=== PATIENT | female | born 1985 | race Caucasian/White ===

== ENCOUNTER 2016-04-14 14:37 | Emergency (ER) | payer MEDICAID ==
[2016-04-14] MEDS ORDERED: Ondansetron INJ* 2 MG/ML VIAL IV ONE ×3 (15:39→17:36)
[2016-04-14] MEDS: NS 0.9% 1000 ML* 2,000 ML IV ONE (16:12)
[2016-04-14 16:14] LABS: Hematocrit 37 % (35-47); Hemoglobin 12.4 g/dl (12.0-16.0); Mean Corpuscular HGB Conc 34 g/dl (31-36); Mean Corpuscular Hemoglobin 32 pg (27-31); Mean Corpuscular Volume 94 fL (80-97); Mean Platelet Volume 8 um3 (7.4-10.4); Red Cell Distribution Width 13 % (10.5-15); White Blood Count 13.1 10^3/ul (3.5-10.8)
[2016-04-14 16:28] LABS: Albumin 4.4 g/dL (3.2-5.2); BUN/Creatinine Ratio 13.4 (8-20); Calcium 9.8 mg/dL (8.6-10.3); EGFR Non-African American 102.7 (>60); Globulin 2.6 g/dL (2-4); Total Bilirubin 0.5 mg/dL (0.2-1.0)
[2016-04-14 16:34] LABS: Potassium 2.7 mmol/L (3.5-5.0)
[2016-04-14] MEDS ORDERED: KCL 20 MEQ/100 ML IVPREMIX* 20 MEQ/100 ML BAG IV ONE ×2 (16:41)
[2016-04-14] MEDS ORDERED: Ondansetron INJ* 2 MG/ML VIAL ONE ×2 (17:36)
[2016-04-14 18:46] LABS: Urine Bacteria Absent (Absent); Urine Bilirubin Negative (Negative); Urine Glucose Negative (Negative); Urine Nitrite Negative (Negative)
[2016-04-14] MEDS ORDERED: PROCHLORPERAZINE INJ 5 MG/ML 2 ML VIAL IV ONE (19:55)
[2016-04-14] MEDS ORDERED: PROCHLORPERAZINE INJ 5 MG/ML 2 ML VIAL IV PRN (19:55)
[2016-04-14 21:06] VITALS: BP 122/78
--- NOTE | 2016-04-14 21:10 | ED ---
Roge Woods Alok, scribed for Trevon Enciso MD on 04/14/16 at 1542 . - HPI Summary HPI Summary: 30 y/o female, 7 weeks presents to the ED with c/o vomiting and nausea for the past week. Pt reports that this is her first (G/V/A = 1/0/0) and for the past 3 days her symptoms have been getting worse, unable to keep any food down. Pt was prescribed Promthazine to no alleviation. Pt denies any vaginal bleeding nor abdominal pain except for directly after vomiting. Pt denies any pertinent PMHx at this time. - History of Current Complaint Chief Complaint: EDAbdPain Stated Complaint: 7WKS PREG / VOMITING-ABD PAIN Time Seen by Provider: 04/14/16 15:30 Hx Obtained From: Patient Chief Complaint: Other: - vomiting and nausea Onset/Duration: Started Days Ago, Atraumatic, Still Present Timing: Constant Severity: Moderate Current Severity: Moderate Pain Intensity: 8 Aggravating Factors: Other: - Vomiting Alleviating Factors: Nothing Associated Signs and Symptoms: Positive: Nausea, Vomiting, Other: - Abd pain only after vomiting. Negative: Vaginal Bleeding or Discharge - Assessment Hx Now: Yes Hx : 1 Hx Para: 0 Vaginal Bleeding Amount: None - Allergies/Home Medications Allergies/Adverse Reactions: Allergies Allergy/AdvReac Type Severity Reaction Status Date / Time No Known Allergies Allergy Verified 04/14/16 16:17 Home Medications: Home Medications Vitamin TAB* 1 tab PO DAILY 04/14/16 [History Confirmed 04/14/16] Promethazine TAB* [Phenergan TAB*] 25 mg PO Q6H PRN 04/14/16 [History Confirmed 04/14/16] PMH/Surg Hx/FS Hx/Imm Hx Infectious Disease History: No Infectious Disease History: Denies: Traveled Outside the [place] in Last 30 Days - Family History Known Family History: Negative: Cardiac Disease, Diabetes Review of Systems Negative: Fever Positive: Abdominal Pain - Only after vomiting, Vomiting, Nausea Negative: other - Vaginal bleeing All Other Systems Reviewed And Are Negative: Yes Physical Exam - Physical Exam Triage Information Reviewed: Yes Vital Signs Reviewed: Yes Appearance: Positive: Well-Appearing, No Pain Distress Skin: Positive: Warm, Skin Color Reflects Adequate Perfusion, Dry Head/Face: Positive: Normal Head/Face Inspection Eyes: Positive: Normal ENT: Positive: Normal ENT inspection Neck: Positive: Supple, Nontender Respiratory/Lung Sounds: Positive: Clear to Auscultation, Breath Sounds Present Cardiovascular: Positive: RRR Abdomen Description: Positive: Nontender, Soft Bowel Sounds: Positive: Present Musculoskeletal: Positive: Normal Neurological: Positive: Normal Psychiatric: Positive: Normal, Affect/Mood Appropriate Diagnostics - Vital Signs Vital Signs Temp Pulse Resp BP Pulse Ox 04/14/16 15:19 98.7 F 97 16 118/69 99 04/14/16 14:39 97.8 F 66 16 119/72 100 - Laboratory Lab Results: Lab Results 04/14/16 04/14/16 04/14/16 Range/Units 16:05 16:05 16:05 WBC 13.1 H (3.5-10.8) 10^3/ul RBC 3.90 L (4.0-5.4) 10^6/ul Hgb 12.4 (12.0-16.0) g/dl Hct 37 (35-47) % MCV 94 (80-97) fL MCH 32 H (27-31) pg MCHC 34 (31-36) g/dl RDW 13 (10.5-15) % Plt Count 284 (150-450) 10^3/ul MPV 8 (7.4-10.4) um3 Neut % (Auto) 73.6 (38-83) % Lymph % (Auto) 18.5 L (25-47) % [place] % (Auto) 7.2 (1-9) % Eos % (Auto) 0.2 (0-6) % Baso % (Auto) 0.5 (0-2) % Absolute Neuts (auto) 9.6 H (1.5-7.7) 10^3/ul Absolute Lymphs (auto) 2.4 (1.0-4.8) 10^3/ul Absolute Monos (auto) 1.0 H (0-0.8) 10^3/ul Absolute Eos (auto) 0 (0-0.6) 10^3/ul Absolute Basos (auto) 0.1 (0-0.2) 10^3/ul Absolute Nucleated RBC 0.01 10^3/ul Nucleated RBC % 0 INR (Anticoag Therapy) 1.06 (0.89-1.11) Sodium 133 (133-145) mmol/L Potassium 2.7 L* (3.5-5.0) mmol/L Chloride 94 L (101-111) mmol/L Carbon Dioxide 31 (22-32) mmol/L Anion Gap 8 (2-11) mmol/L BUN 9 (6-24) mg/dL Creatinine 0.67 (0.51-0.95) mg/dL Est GFR ( Amer) 132.0 (>60) Est GFR (Non-Af Amer) 102.7 (>60) BUN/Creatinine Ratio 13.4 (8-20) Glucose 88 (70-100) mg/dL Lactic Acid (0.5-2.0) mmol/L Calcium 9.8 (8.6-10.3) mg/dL Total Bilirubin 0.50 (0.2-1.0) mg/dL AST 10 L (13-39) U/L ALT 12 (7-52) U/L Alkaline Phosphatase 52 (34-104) U/L Total Protein 7.0 (6.4-8.9) g/dL Albumin 4.4 (3.2-5.2) g/dL Globulin 2.6 (2-4) g/dL Albumin/Globulin Ratio 1.7 (1-3) Beta HCG, Quant 303884.00 mIU/mL Urine Color Urine Appearance Urine pH (5-9) Ur Specific [place] (1.010-1.030) Urine Protein (Negative) Urine Ketones (Negative) Urine Blood (Negative) Urine Nitrate (Negative) Urine Bilirubin (Negative) Urine Urobilinogen (Negative) Ur Leukocyte Esterase (Negative) Urine WBC (Auto) (Absent) Urine RBC (Auto) (Absent) Ur Squamous Epith Cells (Absent) Amorphous Crystals (Absent) Urine Bacteria (Absent) Urine Glucose (Negative) 04/14/16 04/14/16 Range/Units 16:05 18:20 WBC (3.5-10.8) 10^3/ul RBC (4.0-5.4) 10^6/ul Hgb (12.0-16.0) g/dl Hct (35-47) % MCV (80-97) fL MCH (27-31) pg MCHC (31-36) g/dl RDW (10.5-15) % Plt Count (150-450) 10^3/ul MPV (7.4-10.4) um3 Neut % (Auto) (38-83) % Lymph % (Auto) (25-47) % [place] % (Auto) (1-9) % Eos % (Auto) (0-6) % Baso % (Auto) (0-2) % Absolute Neuts (auto) (1.5-7.7) 10^3/ul Absolute Lymphs (auto) (1.0-4.8) 10^3/ul Absolute Monos (auto) (0-0.8) 10^3/ul Absolute Eos (auto) (0-0.6) 10^3/ul Absolute Basos (auto) (0-0.2) 10^3/ul Absolute Nucleated RBC 10^3/ul Nucleated RBC % INR (Anticoag Therapy) (0.89-1.11) Sodium (133-145) mmol/L Potassium (3.5-5.0) mmol/L Chloride (101-111) mmol/L Carbon Dioxide (22-32) mmol/L Anion Gap (2-11) mmol/L BUN (6-24) mg/dL Creatinine (0.51-0.95) mg/dL Est GFR ( Amer) (>60) Est GFR (Non-Af Amer) (>60) BUN/Creatinine Ratio (8-20) Glucose (70-100) mg/dL Lactic Acid 1.1 (0.5-2.0) mmol/L Calcium (8.6-10.3) mg/dL Total Bilirubin (0.2-1.0) mg/dL AST (13-39) U/L ALT (7-52) U/L Alkaline Phosphatase (34-104) U/L Total Protein (6.4-8.9) g/dL Albumin (3.2-5.2) g/dL Globulin (2-4) g/dL Albumin/Globulin Ratio (1-3) Beta HCG, Quant mIU/mL Urine Color Yellow Urine Appearance Cloudy Urine pH 7.0 (5-9) Ur Specific [place] 1.025 (1.010-1.030) Urine Protein 1+(30 mg/dl) H (Negative) Urine Ketones 2+ H (Negative) Urine Blood Negative (Negative) Urine Nitrate Negative (Negative) Urine Bilirubin Negative (Negative) Urine Urobilinogen Negative (Negative) Ur Leukocyte Esterase Negative (Negative) Urine WBC (Auto) 1+(6-10/hpf) H (Absent) Urine RBC (Auto) 2+(6-10/hpf) H (Absent) Ur Squamous Epith Cells Present H (Absent) Amorphous Crystals Present H (Absent) Urine Bacteria Absent (Absent) Urine Glucose Negative (Negative) Result Diagrams: 04/14/16 16:05 04/14/16 16:05 Lab Statement: Any lab studies that have been ordered have been reviewed, and results considered in the medical decision making process. Re-Evaluation - Re-Evaluation First Eval Re-Evaluation Time: 20:55 Course/Dx - Course Course Of Treatment: Winifred Tamayo presented with N/V for four days, essentially unable to keep anything down. She was treated symptomatically and rehydrated. She was found to be hypokalemic and had some replacement. - Diagnoses Provider Diagnoses: Vomiting affecting , Hypokalemia - Provider Notifications Discussed Care Of Patient With: Dr. Astudillo Discharge - Discharge Plan Condition: Stable Disposition: HOME Patient Education Materials: Nausea and Vomiting in (ED) Forms: *Work Release Referrals: Joy Garcia [Primary Care Provider] - Flora Astudillo MD [Medical Doctor] - Additional Instructions: Please follow up with Dr. Astudillo (OBGYN) Please see most up to date information attached The documentation as recorded by the Roge garcia Alok accurately reflects the service I personally performed and the decisions made by , Trevon Enciso MD.
== END 2016-04-14 21:58 | disposition home or self-care (01) ==
LOC: ED 14:37
DX: O21.0 Mild hyperemesis gravidarum (principal); Z3A.01 Less than 8 weeks gestation of pregnancy; R10.9 Unspecified abdominal pain; E87.6 Hypokalemia
CPT/HCPCS: 36415; 80053; 81003; 81015; 83605; 84702; 85025; 85610; 96374; 96375; 99283; J0780; J2405; J3480

== ENCOUNTER 2016-05-23 11:19 | Emergency (ER) | payer MEDICAID ==
[2016-05-23] MEDS ORDERED: NS 0.9% 1000 ML* 2,000 ML IV ONE (11:57)
[2016-05-23 12:26] LABS: Hematocrit 36 % (35-47); Hemoglobin 12.1 g/dl (12.0-16.0); Mean Corpuscular HGB Conc 33 g/dl (31-36); Mean Corpuscular Hemoglobin 31 pg (27-31); Mean Corpuscular Volume 93 fL (80-97); Mean Platelet Volume 9 um3 (7.4-10.4); Red Blood Count 3.88 10^6/ul (4.0-5.4); Red Cell Distribution Width 13 % (10.5-15); White Blood Count 13.8 10^3/ul (3.5-10.8)
[2016-05-23] MEDS ORDERED: Metoclopramide IV* 5 MG/ML 2 ML VIAL IV SLOW PU ONE (12:34)
--- NOTE | 2016-05-23 12:36 | ED ---
GI/ HPI - HPI Summary HPI Summary: 30F at 15 weeks due date Nov 18, 2016 presents with nausea or vomiting since Sunday. She states her has been complicated by feeling sick a lot. She states she has mild epigastric pain. She denies any diarrhea or constipation. She has been prescribed zofran 8mg every 8 hours as needed for nausea. States that feels that has been vomiting it up the past couple days so has not gotten a full dose she believes. She denies any dysuria or hematuria. - History of Current Complaint Chief Complaint: EDAbdPain Time Seen by Provider: 05/23/16 11:56 Stated Complaint: VOMITING, 15 WEEKS PREG Pain Intensity: 0 - Allergy/Home Medications Allergies/Adverse Reactions: Allergies Allergy/AdvReac Type Severity Reaction Status Date / Time No Known Allergies Allergy Verified 04/14/16 16:17 PMH/Surg Hx/FS Hx/Imm Hx Cardiovascular History: Denies: Hx Hypertension Infectious Disease History: Denies: Traveled Outside the [place] in Last 30 Days - Family History Known Family History: Negative: Cardiac Disease, Diabetes - Social History Alcohol Use: None Substance Use Type: Reports: None Smoking Status (MU): Light Every Day Tobacco Smoker Review of Systems Negative: Fever Negative: Chest Pain Negative: Shortness Of Breath Positive: Abdominal Pain - epigastric, Vomiting, Nausea. Negative: Diarrhea All Other Systems Reviewed And Are Negative: Yes Physical Exam Triage Information Reviewed: Yes Vital Signs On Initial Exam: Initial Vitals Temp Pulse Resp BP Pulse Ox 98.1 F 70 15 101/52 100 05/23/16 11:45 05/23/16 11:45 05/23/16 11:45 05/23/16 11:45 05/23/16 11:45 Vital Signs Reviewed: Yes Appearance: Positive: Well-Appearing Skin: Positive: Warm, Dry Head/Face: Positive: Normal Head/Face Inspection Eyes: Positive: Normal, Conjunctiva Clear Respiratory/Lung Sounds: Positive: Clear to Auscultation, Breath Sounds Present Cardiovascular: Positive: Normal, RRR Abdomen Description: Positive: Nontender, Soft Bowel Sounds: Positive: Present Diagnostics - Vital Signs Vital Signs Temp Pulse Resp BP Pulse Ox 05/23/16 12:24 98.4 F 72 16 118/72 98 05/23/16 11:45 98.1 F 70 15 101/52 100 - Laboratory Lab Results: Lab Results 05/23/16 Range/Units 12:10 WBC 13.8 H (3.5-10.8) 10^3/ul RBC 3.88 L (4.0-5.4) 10^6/ul Hgb 12.1 (12.0-16.0) g/dl Hct 36 (35-47) % MCV 93 (80-97) fL MCH 31 (27-31) pg MCHC 33 (31-36) g/dl RDW 13 (10.5-15) % Plt Count 271 (150-450) 10^3/ul MPV 9 (7.4-10.4) um3 Neut % (Auto) 88.0 H (38-83) % Lymph % (Auto) 8.0 L (25-47) % [place] % (Auto) 3.6 (1-9) % Eos % (Auto) 0 (0-6) % Baso % (Auto) 0.4 (0-2) % Absolute Neuts (auto) 12.2 H (1.5-7.7) 10^3/ul Absolute Lymphs (auto) 1.1 (1.0-4.8) 10^3/ul Absolute Monos (auto) 0.5 (0-0.8) 10^3/ul Absolute Eos (auto) 0 (0-0.6) 10^3/ul Absolute Basos (auto) 0.1 (0-0.2) 10^3/ul Absolute Nucleated RBC 0.01 10^3/ul Nucleated RBC % 0 Result Diagrams: 05/23/16 12:10 05/23/16 12:10 Lab Statement: Any lab studies that have been ordered have been reviewed, and results considered in the medical decision making process. Re-Evaluation - Re-Evaluation First Eval Re-Evaluation Time: 14:00 Change: Improved Comment: no longer nausea able to tolerate PO potassium. wants to go home GIGU Course/Dx - Course Course Of Treatment: 30F 15 weeks presents with nausea or vomiting since sunday. has PO zofran taking that unable to keep down. epigastric pain complain of. on exam abdomen nontender. labs similiar to labs had previously when had same symptoms two months ago. gave reglan and patient able to tolerate PO K for low K. spoke with dr tejeda who agreed to d/c home and gave follow up with her obgyn tomorrow. unable to get urine before patient left. patient understands and agrees with plan - Diagnoses Differential Diagnoses - Female: Gastroenteritis (Viral), Gastroenteritis ( Bacterial), Threatened , Urinary Tract Infection Provider Diagnoses: Nausea and vomiting during - Physician Notifications Discussed Care Of Patient With: dr tejeda Time Discussed With Above Provider: 13:40 - follow up with obgyn tomorrow Discharge - Discharge Plan Condition: Good Disposition: HOME Patient Education Materials: Nausea and Vomiting in (ED) Forms: *Work Release Referrals: Joy Garcia [Primary Care Provider] - Flora Astudillo MD [Medical Doctor] - Additional Instructions: Follow up with OBGYN tomorrow Take zofran as prescribed Drink fluids as tolerated Follow BRAT diet: bananas, rice, applesauce, toast Return to ED if develop any new or worsening symptoms
[2016-05-23 12:43] LABS: Albumin 4.2 g/dL (3.2-5.2); Calcium 9.9 mg/dL (8.6-10.3); EGFR African American 127.6 (>60); EGFR Non-African American 99.2 (>60); Total Bilirubin 0.4 mg/dL (0.2-1.0); Total Protein 7.2 g/dL (6.4-8.9)
[2016-05-23] MEDS ORDERED: Potassium Chlor TAB* 20 MEQ TAB.ER PO ONE (13:10)
[2016-05-23 14:17] VITALS: BP 116/74
== END 2016-05-23 14:16 | disposition home or self-care (01) ==
LOC: ED 11:19
DX: O21.9 Vomiting of pregnancy, unspecified (principal); Z3A.15 15 weeks gestation of pregnancy; F17.290 Nicotine dependence, other tobacco product, uncomplicated
CPT/HCPCS: 36415; 80053; 83690; 84702; 85025; 96361; 96374; 99283; A9270-GY

== ENCOUNTER 2016-11-10 08:14 | Inpatient (IN) | payer OTHER ==
[2016-11-10] MEDS ORDERED: DiMENhydriNATE IV* 50 MG/ML VIAL ONE (09:08)
[2016-11-10 09:13] LABS: Hematocrit 33 % (35-47); Mean Corpuscular HGB Conc 34 g/dl (31-36); Mean Corpuscular Hemoglobin 29 pg (27-31); Mean Corpuscular Volume 86 fL (80-97); Mean Platelet Volume 9 um3 (7.4-10.4); Red Blood Count 3.79 10^6/ul (4.0-5.4); Red Cell Distribution Width 15 % (10.5-15); White Blood Count 10.2 10^3/ul (3.5-10.8)
[2016-11-10] MEDS ORDERED: ceFAZolin 2 GM in NS 0.9% 100 ml IVPB ONE (10:00)
[2016-11-10] MEDS ORDERED: OBEPIDURAL* 250 ML ONE (10:24)
[2016-11-10] MEDS ORDERED: ceFAZolin 2 GM PREMIX (*) 50 ML IVPB ONE (11:00)
[2016-11-10] MEDS ORDERED: Phenylephrine IV* 40 MCG/ML 10 ML SYRINGE IV PUSH PRN ×2 (11:27)
[2016-11-10] MEDS ORDERED: Sodium Citrate/Citric Acid* 15 ML UDC PO PRN (11:27)
[2016-11-10] MEDS ORDERED: Famotidine TAB* 20 MG PO PRN (11:27)
[2016-11-10] MEDS ORDERED: Sodium Citrate/Citric Acid* 15 ML UDC ONE (11:36)
[2016-11-10] MEDS ORDERED: Lidocaine 1% MPF* 2 ML VIAL ONE (11:39)
[2016-11-10] MEDS ORDERED: Lidocaine 1% MPF wEPI 200,000* 30 ML SDV ONE (11:39)
[2016-11-10] MEDS ORDERED: OBEPIDURAL* 250 ML EPIDURAL SCH (12:00)
[2016-11-10] MEDS ORDERED: fentaNYL* 50 MCG/ML 2 ML VIAL (100 MCG VIAL) ONE (12:05)
[2016-11-10] MEDS ORDERED: Sodium Bicarbonate 8.4% SYR* 10 ML SYRINGE ONE (12:06)
[2016-11-10] MEDS ORDERED: Lidocaine 2% EPI 1:200000 MPF* 20 ML VIAL ONE (12:06)
[2016-11-10] MEDS ORDERED: OXYTOCIN* 10 UNITS/ML 1 ML VIAL ONE (12:23)
[2016-11-10] MEDS ORDERED: Ondansetron INJ* 2 MG/ML VIAL ONE (12:40)
[2016-11-10] MEDS ORDERED: fentaNYL* 50 MCG/ML 2 ML VIAL (100 MCG VIAL) IV PRN (12:47)
[2016-11-10] MEDS ORDERED: oxyCODONE TAB* 5 MG TAB PO PRN (12:47)
[2016-11-10] MEDS ORDERED: DiMENhydriNATE IV* 50 MG/ML VIAL IV PUSH PRN (12:47)
[2016-11-10] MEDS ORDERED: Morphine INJ* 2 MG/ML 1 ML CARPUJECT IV PRN (12:47)
[2016-11-10] MEDS ORDERED: Ketorolac INJ* 30 MG/ML 1 ML VIAL IV PRN (12:47)
[2016-11-10] MEDS ORDERED: Ketorolac INJ* 30 MG/ML 1 ML VIAL ONE (13:47)
[2016-11-10] MEDS ORDERED: Acetaminophen TAB* 325 MG PO PRN (15:30)
[2016-11-10] MEDS ORDERED: Zolpidem TAB* 5 MG PO PRN (15:30)
[2016-11-10] MEDS ORDERED: oxyCODONE/Acetamin 5/325 MG* TAB PO PRN (15:30)
[2016-11-10] MEDS ORDERED: Dibucaine 1% 28.35 GM TUBE PR PRN (15:30)
[2016-11-10] MEDS ORDERED: Witch Hazel PAD* JAR TOPICAL PRN (15:30)
[2016-11-10] MEDS ORDERED: Glycerin ADULT SUPP PR PRN (15:30)
[2016-11-10] MEDS ORDERED: oxyCODONE/Acetamin 5/325 MG* TAB ONE (15:39)
[2016-11-10] MEDS: Nicotine PATCH 7 MG/24 HR* PATCH TRANSDERM SCH (17:46)
[2016-11-10] MEDS: Simethicone TAB* 80 MG TAB.CHEW PO SCH ×2 (17:50→20:41)
[2016-11-10] MEDS: Ketorolac INJ* 30 MG/ML 1 ML VIAL IV PUSH SCH (19:34)
[2016-11-10] MEDS: oxyCODONE/Acetamin 5/325 MG* TAB PO PRN (20:41)
[2016-11-10] MEDS: Docusate CAP* 100 MG PO SCH (20:41)
[2016-11-11] MEDS: oxyCODONE/Acetamin 5/325 MG* TAB PO PRN ×3 (01:24→12:48)
[2016-11-11] MEDS: Ketorolac INJ* 30 MG/ML 1 ML VIAL IV PUSH SCH ×2 (01:24→07:16)
--- NOTE | 2016-11-11 03:57 | OP ---
DATE OF OPERATION: 11/10/16 - ROOM #[id number]-105 DATE OF : 83 SURGEON: Flora Astudillo MD [employer] LINGUIST: Beverley Alcaraz CNM ANESTHESIOLOGIST: Stephan Lara MD ANESTHESIA: Epidural anesthesia. PRE-OP DIAGNOSES: Intrauterine gestation at 38 and 6 weeks gestational age, rupture of membranes, labor, breech presentation. POST-OP DIAGNOSES: Intrauterine gestation at 38 and 6 weeks gestational age, rupture of membranes, labor, breech presentation. OPERATIVE PROCEDURE: Primary low transverse section. ESTIMATED BLOOD LOSS: 500 mL. FLUIDS: Crystalloid. DRAINS: Dunlap catheter. COMPLICATIONS: None. FINDINGS: Female . Weight 6 pounds 6 ounces. Apgars 9 and 9. Normal- appearing placenta. Normal-appearing uterus, ovaries, and tubes. DESCRIPTION OF PROCEDURE: After informed consent was signed, the patient was taken to the operating room where her epidural anesthesia was found to be adequate. A Dunlap catheter had been introduced into her bladder and SCDs were placed on her legs. She was prepped and draped in the dorsal supine position with a leftward tilt. Time-out was performed. A Pfannenstiel skin incision was made with a scalpel and carried down to the underlying layer of fascia with the scalpel. The fascia was incised on either side of the midline and the fascial incision extended laterally with the Brumfield scissors. The inferior edge of the fascial incision was grasped with Natalie clamps, tented up and dissected down with a combination of sharp and blunt dissection. Then, the superior edge of the fascial incision was grasped with Natalie clamps, tented up and dissected down with sharp and blunt dissection. The rectus muscles were in the midline and peritoneum was entered bluntly. Bladder blade was inserted and a transverse incision was made in the lower uterine segment with a scalpel. The incision was extended superiorly and inferiorly with blunt pressure. The was found to be in gilmar breech presentation. The buttocks were delivered followed by the legs and the torso. The arms were then delivered rotated inwardly and the head was delivered in a flexed position. The cord was milked towards the baby for 30 seconds and clamped x2 and the baby was handed to the associate director of nursing. Cord blood was collected. The uterus was then delivered with gentle cord traction and fundal massage. The uterus was cleared of clots and debris and was exteriorized. The uterine incision was closed with 0 Vicryl in a running locked suture with the second layer of suture imbricating the first. The abdomen was irrigated and the uterus was placed back into the abdominal cavity. Good hemostasis was seen along the uterine incision. The peritoneum was then closed with 3-0 chromic in a running locked fashion. The fascia was closed with 0 Vicryl in a running locked fashion. One suture of 3-0 chromic was placed in the midline of the subcuticular layer to help the skin to reapproximate, then the skin was closed with 4-0 Monocryl in a running subcuticular fashion. Mastisol and Steri-Strips were placed. The incision was cleaned and a dressing was placed. The patient was moved to the stretcher and taken to the recovery room in stable condition. [id number]/CPS #: [id number] NEFTALY
[2016-11-11] MEDS: Nicotine Patch Removal NOTE PATCH OFF SCH (07:15)
[2016-11-11] MEDS: Simethicone TAB* 80 MG TAB.CHEW PO SCH ×4 (09:00→21:58)
[2016-11-11] MEDS: Docusate CAP* 100 MG PO SCH ×3 (09:00→21:55)
[2016-11-11] MEDS: Ferrous Gluconate TAB* 324 MG TAB PO SCH (09:00)
[2016-11-11] MEDS ORDERED: Al Hydrox/Mg Hydrox/Simet LIQ* 30 ML UDC PO PRN (09:04)
[2016-11-11] MEDS ORDERED: Al Hydrox/Mg Hydrox/Simet LIQ* 30 ML UDC ONE (09:06)
[2016-11-11 10:06] LABS: Hematocrit 27 % (35-47); Mean Corpuscular HGB Conc 33 g/dl (31-36); Mean Corpuscular Hemoglobin 29 pg (27-31); Mean Corpuscular Volume 85 fL (80-97); Mean Platelet Volume 9 um3 (7.4-10.4); Red Blood Count 3.14 10^6/ul (4.0-5.4); Red Cell Distribution Width 15 % (10.5-15); White Blood Count 14.3 10^3/ul (3.5-10.8)
[2016-11-11] MEDS: Nicotine PATCH 7 MG/24 HR* PATCH TRANSDERM SCH (13:22)
[2016-11-11] MEDS: Ibuprofen TAB* 600 MG PO PRN ×2 (13:28→21:58)
[2016-11-11] MEDS: Ondansetron ODT TAB* 4 MG SL PRN (17:44)
[2016-11-11] MEDS: HYDROcodone/ACETAMIN 5-325 MG* 1 TAB PO PRN (19:50)
[2016-11-12] MEDS: Ondansetron ODT TAB* 4 MG SL PRN ×2 (00:15→08:36)
[2016-11-12] MEDS: Nicotine Patch Removal NOTE PATCH OFF SCH ×2 (00:16→22:00)
[2016-11-12] MEDS: HYDROcodone/ACETAMIN 5-325 MG* 1 TAB PO PRN ×6 (00:16→21:57)
[2016-11-12] MEDS: Ibuprofen TAB* 600 MG PO PRN ×4 (03:47→17:42)
[2016-11-12] MEDS: Ferrous Gluconate TAB* 324 MG TAB PO SCH ×3 (04:28→21:58)
[2016-11-12] MEDS: Docusate CAP* 100 MG PO SCH ×3 (10:50→21:58)
[2016-11-12] MEDS: Simethicone TAB* 80 MG TAB.CHEW PO SCH ×4 (10:50→21:59)
[2016-11-12] MEDS: Nicotine PATCH 7 MG/24 HR* PATCH TRANSDERM SCH (13:14)
[2016-11-13] MEDS: HYDROcodone/ACETAMIN 5-325 MG* 1 TAB PO PRN ×2 (01:22→09:27)
[2016-11-13] MEDS: Ibuprofen TAB* 600 MG PO PRN ×2 (01:22→09:28)
[2016-11-13 08:23] VITALS: BP 151/90
[2016-11-13] MEDS: Docusate CAP* 100 MG PO SCH (09:27)
[2016-11-13] MEDS: Simethicone TAB* 80 MG TAB.CHEW PO SCH (09:27)
[2016-11-13] MEDS: Ferrous Gluconate TAB* 324 MG TAB PO SCH (09:27)
== END 2016-11-13 11:08 | disposition home or self-care (01) | DRG 540 ==
LOC: MCHOBOUT 08:14 → MCHOB 08:21
PROVIDERS: ADMIT Obstetrics & Gynecology; ATTEND Obstetrics & Gynecology
PROC: 10D00Z1 Extraction of Products of Conception, Low, Open Approach (ICD-10-PCS; principal; 2016-11-10)
PROC: 4A1HX4Z Monitoring of Products of Conception, Cardiac Electrical Activity, External Approach (ICD-10-PCS; 2016-11-10)
DX: O32.1XX0 Maternal care for breech presentation, not applicable or unspecified (principal); F17.210 Nicotine dependence, cigarettes, uncomplicated; O99.334 Smoking (tobacco) complicating childbirth; Z37.0 Single live birth; Z3A.38 38 weeks gestation of pregnancy
CPT/HCPCS: 36415; 85025; 85027; 86850; 86900; 86901; A9270-GY; J0690; J1240; J1885; J2001; J2405; J2590; J3010

== ENCOUNTER 2017-02-02 08:46 | Emergency (ER) | payer OTHER ==
[2017-02-02] MEDS ORDERED: Ondansetron INJ* 2 MG/ML VIAL IV ONE (09:01)
[2017-02-02] MEDS ORDERED: Metoclopramide IV* 5 MG/ML 2 ML VIAL IV SLOW PU ONE (09:01)
[2017-02-02] MEDS ORDERED: NS 0.9% 1000 ML* 2,000 ML IV ONE (09:02)
[2017-02-02 09:21] LABS: ABS Basophils 0.1 10^3/ul (0-0.2); ABS Eosinophils 0 10^3/ul (0-0.6); ABS Lymphocytes 1.5 10^3/ul (1.0-4.8); ABS Monocytes 0.4 10^3/ul (0-0.8); ABS Neutrophils 7.6 10^3/ul (1.5-7.7); ABS Nucleated RBC 0 10^3/ul; Eosinophil % 0.4 % (0-6); Hematocrit 39 % (35-47); Hemoglobin 13.2 g/dl (12.0-16.0); Lymphocyte % 15.4 % (25-47); Mean Corpuscular HGB Conc 34 g/dl (31-36); Mean Corpuscular Hemoglobin 30 pg (27-31); Mean Corpuscular Volume 87 fL (80-97); Mean Platelet Volume 8 um3 (7.4-10.4); Nucleated Red Blood Cells % 0; Platelet Count 341 10^3/ul (150-450); Red Blood Count 4.46 10^6/ul (4.0-5.4); Red Cell Distribution Width 17 % (10.5-15); White Blood Count 9.7 10^3/ul (3.5-10.8)
[2017-02-02 09:37] LABS: EGFR Non-African American 69.9 (>60)
[2017-02-02] MEDS ORDERED: LORazepam INJ* 2 MG/ML 1 ML VIAL IV PUSH ONE (09:52)
[2017-02-02] MEDS ORDERED: Trimethobenzamide IM* 100 MG/ML 2 ml VIAL IM ONE (10:51)
[2017-02-02 13:32] LABS: Urine Appearance Cloudy; Urine Blood Negative (Negative); Urine Color Yellow; Urine Ketones Negative (Negative); Urine Protein 1+(30 mg/dL) (Negative); Urine Specific Gravity 1.021 (1.010-1.030); Urine Urobilinogen Negative (Negative)
[2017-02-02 13:46] VITALS: BP 126/76
--- NOTE | 2017-02-23 15:46 | ED ---
Rafat Woods Angela, scribed for Perfecto Garcia MD on 02/02/17 at 0859 . Abdominal Pain/Female - HPI Summary HPI Summary: This pt is a 31 y/o female presenting to [facility] c/o diffuse abd pain and vomiting x3 days. Pt reports she recently delivered her baby on November 10. Pt states she has been on Zofran during her whole . Pt denies abd problems /pain prior to her . Pt notes she was in the ED twice for these symptoms while . She additionally reports she has been vomiting every 2 weeks and had diarrhea yesterday. Pt denies dysuria, hematuria, urinary frequency, fever, chills, dizziness, light-headedness. Pt is no longer on Zofran. LMP: currently has it now (first time after ). Surgeries: . Denies alcohol use. Pt is a current smoker. - History of Current Complaint Chief Complaint: EDAbdPain Stated Complaint: ABD PAIN, VOMITING Time Seen by Provider: 02/02/17 08:51 Hx Obtained From: Patient Onset/Duration: Lasting Days, Still Present Timing: Days Severity Currently: Severe Pain Intensity: 10 Pain Scale Used: 0-10 Numeric Location: Diffuse Radiates: No Aggravating Factor(s): Nothing Alleviating Factor(s): Nothing Associated Signs and Symptoms: Positive: Nausea, Vomiting, Diarrhea, Other: - NEG: chills, dizziness, light-headedness. Negative: Fever, Urinary Symptoms Allergies/Adverse Reactions: Allergies Allergy/AdvReac Type Severity Reaction Status Date / Time No Known Allergies Allergy Verified 02/02/17 08:47 PMH/Surg Hx/FS Hx/Imm Hx Endocrine/Hematology History: Denies: Hx Diabetes Cardiovascular History: Denies: Hx Hypertension Infectious Disease History: No Infectious Disease History: Denies: Traveled Outside the [place] in Last 30 Days - Family History Known Family History: Negative: Cardiac Disease, Diabetes - Social History Alcohol Use: None Substance Use Type: Reports: None Smoking Status (MU): Light Every Day Tobacco Smoker Amount Used/How Often: 5/day Have You Smoked in the Last Year: Yes Review of Systems Negative: Fever, Chills Negative: Erythema Negative: Sore Throat Negative: Chest Pain Negative: Shortness Of Breath, Cough Positive: Abdominal Pain, Vomiting, Diarrhea - yesterday, Nausea Negative: dysuria, frequency, hematuria Negative: Myalgia, Edema Negative: Rash Neurological: Other - NEG: dizziness, lightheadedness All Other Systems Reviewed And Are Negative: Yes Physical Exam - Summary Physical Exam Summary: Constitutional: Well-developed, Well-nourished, Alert. (-) Distressed Skin: Warm, Dry HENT: Normocephalic; Atraumatic Eyes: Conjunctiva normal Neck: Musculoskeletal ROM normal neck. (-) JVD, (-) Stridor, (-) Tracheal deviation Cardio: Rhythm regular, rate normal, Heart sounds normal; Intact distal pulses; The pedal pulses are 2+ and symmetric. Radial pulses are 2+ and symmetric. (-) Murmur Pulmonary/Chest wall: Effort normal. (-) Respiratory distress, (-) Wheezes, (-) Rales Abd: Soft, (-) Tenderness, (-) Distension, (-) Guarding, (-) Rebound Musculoskeletal: (-) Edema Lymph: (-) Cervical adenopathy Neuro: Alert, Oriented x3 Psych: Mood and affect Normal Triage Information Reviewed: Yes Vital Signs On Initial Exam: Initial Vitals Temp Pulse Resp BP Pulse Ox 98.0 F 69 20 167/103 97 02/02/17 08:48 02/02/17 08:48 02/02/17 08:48 02/02/17 08:48 02/02/17 08:48 Vital Signs Reviewed: Yes Diagnostics - Vital Signs Vital Signs Temp Pulse Resp BP Pulse Ox 02/02/17 08:48 98.0 F 69 20 167/103 97 - Laboratory Result Diagrams: 02/02/17 09:12 02/02/17 09:12 Lab Statement: Any lab studies that have been ordered have been reviewed, and results considered in the medical decision making process. Re-Evaluation - Re-Evaluation First Eval Re-Evaluation Time: 12:34 Comment: Pt is feeling better. She tolerated gingerale. Second Eval Re-Evaluation Time: 12:45 Comment: Pt had another episode of emesis. Third Eval Re-Evaluation Time: 13:37 Comment: Pt is tolerating PO. Abdominal Pain Fem Course/Dx - Course Course Of Treatment: This pt is a 31 y/o female presenting to [facility] c/o diffuse abd pain and vomiting x3 days. Pt reports she recently delivered her baby on November 10. Pt states she has been on Zofran during her whole . Pt denies abd problems/pain prior to her . Pt notes she was in the ED twice for these symptoms while . She additionally reports she has been vomiting every 2 weeks and had diarrhea yesterday. Pt denies dysuria, hematuria , urinary frequency, fever, chills, dizziness, light-headedness. In the ED course, the pt was given IV fluids, Ativan, Reglan, and Zofran. Lab work is nonactionable. Pt is a current marijuana user. We suspect the marijuana may be contributing to some of her vomiting. Pt will be discharged to home with a prescription for Zofran, and a diagnosis of cyclic vomiting syndrome, vomiting, and marijuana abuse. Pt is also given a referral to GI. - Diagnoses Provider Diagnoses: Cyclic vomiting syndrome, Vomiting, Marijuana abuse Discharge - Discharge Plan Condition: Stable Disposition: HOME Prescriptions: Ondansetron ODT TAB* [Zofran 4 MG Odt TAB*] 4 mg PO Q8H PRN #30 tab.odt PRN Reason: Nausea/Vomiting Patient Education Materials: Acute Nausea and Vomiting (ED) Referrals: Joy Garcia [Primary Care Provider] - Nilo Marquis MD [Medical Doctor] - Additional Instructions: Please follow up with Dr. Marquis, family and consumer education teacher, in 2-3 days. RETURN TO THE EMERGENCY DEPARTMENT FOR CHANGING OR WORSENING SYMPTOMS. The documentation as recorded by the Rafat garcia Angela accurately reflects the service I personally performed and the decisions made by , Perfecto Garcia MD.
== END 2017-02-02 13:58 | disposition home or self-care (01) ==
LOC: ED 08:46
DX: G43.A0 Cyclical vomiting, in migraine, not intractable (principal); F12.10 Cannabis abuse, uncomplicated; R19.7 Diarrhea, unspecified; F17.210 Nicotine dependence, cigarettes, uncomplicated
CPT/HCPCS: 36415; 80053; 80307; 81003; 81015; 83605; 83690; 85025; 86140; 99283; J2060; J2405; J2765; J3250

== ENCOUNTER 2018-04-13 15:51 | Emergency (ER) | payer OTHER ==
--- NOTE | 2018-04-13 17:32 | ED ---
GI/ HPI - HPI Summary HPI Summary: This patient is a32 year old F presenting to ED with a chief complaint of N/V since 04/08/18. She started having these sx when she was 2 years ago. She has been vomiting water and yellow stuff. She last ate 3/2 and 3/3. The patient rates the pain 5/10 in severity. Symptoms aggravated by nothing. Symptoms alleviated by nothing. Patient reports she has heartburn and dehydration. LNMP was last week. She smokes marijuana every day and her sx starts in the morning. - History of Current Complaint Chief Complaint: EDAbdPain Time Seen by Provider: 04/13/18 17:24 Stated Complaint: SICK FOR A WEEK, PER MOM Hx Obtained From: Patient, Family/Agriculture Research Director Onset/Duration: Started Days Ago - since 04/08/18, Still Present Timing: Constant, Lasting Days Severity: Moderate Current Severity: None Pain Intensity: 5 Associated Signs and Symptoms: Positive: Nausea, Vomiting, Other: - "heartburn" - Allergy/Home Medications Allergies/Adverse Reactions: Allergies Allergy/AdvReac Type Severity Reaction Status Date / Time No Known Allergies Allergy Verified 04/13/18 15:55 Home Medications: Home Medications Acetaminophen TAB* [Tylenol TAB*] 650 mg PO Q4H PRN 04/13/18 [History Confirmed 04/13/18] PMH/Surg Hx/FS Hx/Imm Hx Endocrine/Hematology History: Denies: Hx Diabetes Cardiovascular History: Denies: Hx Hypertension Infectious Disease History: No Infectious Disease History: Denies: Traveled Outside the [place] in Last 30 Days - Family History Known Family History: Negative: Cardiac Disease, Diabetes - Social History Alcohol Use: None Substance Use Type: Reports: Marijuana - every day user Substance Use Comment - Amount & Last Used: 1 week Smoking Status (MU): Light Every Day Tobacco Smoker Amount Used/How Often: 5/day Have You Smoked in the Last Year: Yes Review of Systems Positive: Other - dehydration Positive: Vomiting, Nausea, Other - "heartburn" All Other Systems Reviewed And Are Negative: Yes Physical Exam - Summary Physical Exam Summary: VITAL SIGNS: Reviewed. GENERAL: Patient is a well-developed and nourished FEMALE who is lying comfortable in the stretcher. Patient is not in any acute respiratory distress. HEAD AND FACE: No signs of trauma. No ecchymosis, hematomas or skull depressions. No sinus tenderness. EYES: PERRLA, EOMI x 2, No injected conjunctiva, no nystagmus. EARS: Hearing grossly intact. Ear canals and tympanic membranes are within normal limits. MOUTH: Oropharynx within normal limits. NECK: Supple, trachea is midline, no adenopathy, no JVD, no carotid bruit, no c- spine tenderness, neck with full ROM. CHEST: Symmetric, no tenderness at palpation LUNGS: Clear to auscultation bilaterally. No wheezing or crackles. CVS: Regular rate and rhythm, S1 and S2 present, no murmurs or gallops appreciated. ABDOMEN: Soft, non-tender. No signs of distention. No rebound no guarding, and no masses palpated. Bowel sounds are normal. EXTREMITIES: FROM in all major joints, no edema, no cyanosis or clubbing. NEURO: Alert and oriented x 3. No acute neurological deficits. Speech is normal and follows commands. SKIN: Dry and warm Triage Information Reviewed: Yes Vital Signs On Initial Exam: Initial Vitals Temp Pulse Resp BP Pulse Ox 99.3 F 94 14 137/99 97 04/13/18 15:52 04/13/18 15:52 04/13/18 15:52 04/13/18 15:52 04/13/18 15:52 Vital Signs Reviewed: Yes Diagnostics - Vital Signs Vital Signs Temp Pulse Resp BP Pulse Ox 04/13/18 17:20 84 120/84 95 04/13/18 17:00 75 97 04/13/18 16:50 80 118/81 98 04/13/18 16:49 75 97 04/13/18 15:52 99.3 F 94 14 137/99 97 - Laboratory Result Diagrams: 04/13/18 18:55 04/13/18 18:55 Lab Statement: Any lab studies that have been ordered have been reviewed, and results considered in the medical decision making process. GIGU Course/Dx - Course Assessment/Plan: Patient is a 32-year-old female who presents to the emergency department with a chief complaint of nausea and vomiting. She declined abdominal pain. The symptoms started this morning. Patient has experience same symptoms in the past. The patient uses marijuana daily. Will receive awaiting for the blood work. In the ED course the patient was given IV fluids, Benadryl, Zofran and Protonix. The patient is resting comfortable. At this time I will be signing out the patient to Dr. Green at shift change. He will reassess the patient for nausea and vomiting and further disposition on this patient. - Diagnoses Provider Diagnoses: Nausea and vomiting Discharge - Sign-Out/Discharge Documenting (check all that apply): Sign-Out Patient - pending labs Signing out patient TO: Parth Green Patient Received Moderate/Deep Sedation with Procedure: No - Discharge Plan Condition: Stable Disposition: HOME Patient Education Materials: Acute Nausea and Vomiting (ED) Referrals: Joy Garcia [Primary Care Provider] - 2 Days Additional Instructions: RETURN TO THE EMERGENCY DEPARTMENT FOR CHANGING OR WORSENING SYMPTOMS. FOLLOW UP WITH Dr. Garcia IN 1-2 DAYS. - Billing Disposition and Condition Condition: STABLE - Attestation Statements Document Initiated by Raji: Yes Documenting Scribe: Yannick Tinoco Provider For Whom Olege is Documenting (Include Credential): Thai Desouza MD Scribe Attestation: Yannick Woods, scribed for Thai Desouza MD on 04/14/18 at 0744. Scribe Documentation Reviewed: Yes Provider Attestation: The documentation as recorded by the Yannick garcia accurately reflects the service I personally performed and the decisions made by , Thai Desouza MD Status of Scribe Document: Viewed
[2018-04-13] MEDS ORDERED: NS 0.9% 1000 ML** 2,000 ML ONE (17:40)
[2018-04-13] MEDS ORDERED: Ondansetron INJ* 2 MG/ML VIAL ONE (17:40)
[2018-04-13] MEDS ORDERED: diPHENhydraMINE IV* 50 MG/ML 1 ml VIAL (BENADRYL) ONE (17:40)
[2018-04-13] MEDS ORDERED: NS 0.9% 1000 ML** 2,000 ML IV ONE (17:44)
[2018-04-13] MEDS ORDERED: Ondansetron INJ* 2 MG/ML VIAL IV ONE (17:44)
[2018-04-13] MEDS ORDERED: diPHENhydraMINE IV* 50 MG/ML 1 ml VIAL (BENADRYL) IV ONE (17:44)
[2018-04-13] MEDS ORDERED: Pantoprazole IV* 40 MG IV ONE (17:46)
[2018-04-13] MEDS ORDERED: NS 0.9% 1000 ML** 1,000 ML IV ONE (18:41)
[2018-04-13 19:00] LABS: ABS Basophils 0 10^3/ul (0-0.2); ABS Eosinophils 0 10^3/ul (0-0.6); ABS Lymphocytes 1.7 10^3/ul (1.0-4.8); ABS Monocytes 0.6 10^3/ul (0-0.8); ABS Neutrophils 4.6 10^3/ul (1.5-7.7); ABS Nucleated RBC 0 10^3/ul; Eosinophil % 0.1 %; Hematocrit 36 % (35-47); Hemoglobin 12.4 g/dl (12.0-16.0); Lymphocyte % 24.5 %; Mean Corpuscular HGB Conc 34 g/dl (31-36); Mean Corpuscular Hemoglobin 31 pg (27-31); Mean Corpuscular Volume 91 fL (80-97); Mean Platelet Volume 8.2 fL (7.4-10.4); Nucleated Red Blood Cells % 0.1; Platelet Count 253 10^3/ul (150-450); Red Blood Count 3.97 10^6/ul (4.00-5.40); Red Cell Distribution Width 14 % (10.5-15)
--- NOTE | 2018-04-13 19:08 | ED ---
Progress - Progress Note Progress Note: This patient was signed out by Dr. Desouza to Dr. Green, awaiting lab results. Course/Dx - Course Course Of Treatment: This patient was signed out by Dr. Desouza to Dr. Green, awaiting lab results. Test results without significant abnormalities. The patient will be discharged with follow up from Dr. Garcia. - Diagnoses Provider Diagnoses: Nausea and vomiting Discharge - Sign-Out/Discharge Documenting (check all that apply): Patient Departure - discharge, Receiving Sign-Out Receiving patient FROM: Thai Desouza Patient Received Moderate/Deep Sedation with Procedure: No - Discharge Plan Condition: Stable Disposition: HOME Patient Education Materials: Acute Nausea and Vomiting (ED) Referrals: Joy Garcia [Primary Care Provider] - 2 Days Additional Instructions: RETURN TO THE EMERGENCY DEPARTMENT FOR CHANGING OR WORSENING SYMPTOMS. FOLLOW UP WITH Dr. Garcia IN 1-2 DAYS. - Billing Disposition and Condition Condition: STABLE Disposition: Home - Attestation Statements Document Initiated by Scribe: Yes Documenting Scribe: Josh Dotson Provider For Whom Raji is Documenting (Include Credential): Parth Green MD Scribe Attestation: Josh Woods scribed for Parth Green MD on 04/14/18 at 0614. Scribe Documentation Reviewed: Yes Provider Attestation: The documentation as recorded by the Josh garcia accurately reflects the service I personally performed and the decisions made by Fabio montoya MD Status of Scribe Document: Viewed
[2018-04-13 19:17] LABS: ALT 11 U/L (7-52); AST 12 U/L (13-39); Albumin/Globulin Ratio 1.8 (1-3); Alkaline Phosphatase 57 U/L (34-104); Anion Gap 11 mmol/L (2-11); BUN/Creatinine Ratio 17.3 (8-20); Blood Urea Nitrogen 14 mg/dL (6-24); C Reactive Protein < 1.00 mg/L (<8.01); CO2 Carbon Dioxide 24 mmol/L (22-32); Calcium 8.2 mg/dL (8.6-10.3); Chloride 98 mmol/L (101-111); EGFR African American 98.5 (>60); EGFR Non-African American 81.4 (>60); Globulin 2.2 g/dL (2-4); Glucose 64 mg/dL (70-100); Potassium 3.7 mmol/L (3.5-5.0); Sodium 133 mmol/L (135-145); Total Protein 6.2 g/dL (6.4-8.9)
[2018-04-13 19:24] LABS: HCG Pregnancy < 0.60 mIU/mL
[2018-04-13 19:53] LABS: Urine Appearance Cloudy; Urine Bacteria Absent (Absent); Urine Bilirubin Negative (Negative); Urine Blood 1+ (Negative); Urine Color Yellow; Urine Glucose Negative (Negative); Urine Ketones 2+ (Negative); Urine Nitrite Negative (Negative); Urine Protein 1+(30 mg/dL) (Negative); Urine Red Blood Cell Trace(0-2/hpf) (Absent); Urine Specific Gravity 1.019 (1.010-1.030); Urine Squamous Epithelial Cell Present (Absent); Urine Urobilinogen Negative (Negative); Urine White Blood Cell Trace(0-5/hpf) (Absent)
[2018-04-13] MEDS ORDERED: Ondansetron TAB* 4 MG PO ONE (20:57)
[2018-04-13 21:07] VITALS: BP 95/56
== END 2018-04-13 21:10 | disposition home or self-care (01) ==
LOC: ED 15:51
DX: R11.2 Nausea with vomiting, unspecified (principal); F17.210 Nicotine dependence, cigarettes, uncomplicated; F12.10 Cannabis abuse, uncomplicated; E86.0 Dehydration
CPT/HCPCS: 36415; 80053; 81003; 81015; 83690; 84702; 85025; 86140; 87086; 96361; 96374; 96375; 99283; A9270-GY; J1200; J2405

== ENCOUNTER 2019-03-10 10:55 | Emergency (ER) | payer OTHER ==
--- OUTSIDE RECORDS SUMMARY | 2019-03-10 11:11 | XMS REPORT ---
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 Active 453465 depression Problem Anxiety F41.9 Active 40949022 Problem Lower back pain 724.2 Active 791128811 Problem Non-intractable G43.A0 Active 41724355 cyclical vomiting with nausea Problem Depression, F32.9 Active 08578075 unspecified depression type ALLERGIES No Information ENCOUNTERS Encounter Location Date Diagnosis [address] Feb, [place] [address] Jan, [place] [address] Jan, Non- [place] [address] vomiting with nausea G43.A0 [address] Dec, Non- [place] [address] vomiting with nausea G43.A0 [address] Nov, [place] [address] Nov, Anxiety F41.9 ; [place] [address] major depression F32.1 and Encounter for immunization Z23 [address] Nov, [place] [address] Oct, [place] [address] F32.1 ; Anxiety F41.9 and Non-intractable cyclical vomiting with nausea G43.A0 [facility] [address] [facility] [place], [place] [address] [facility] [address] [facility] [address], [place] [address] [place] [address] [place], [place] [address] [place], Papanicolaou smear for Health [place] [address] cervical cancer screening Z12.4 ; Non-intractable cyclical vomiting with nausea G43.A0 and Routine screening for STI (sexually transmitted infection) Z11.[address] [place], Non-intractable cyclical [place] [address] vomiting with nausea G43.A0 [facility] [address] [place], [place] [address] [place], Non-intractable cyclical [place] [address] vomiting with nausea G43.A0 and Depression, unspecified depression type F32.[address] [place], Non-intractable cyclical [place] [address] vomiting with nausea G43.A[address] [place], Non-intractable cyclical [place] [address] vomiting with nausea G43.A[address] [place], Non-intractable cyclical [place] [address] vomiting with nausea G43.A0 [facility] [address] [place], [place], [place] [address] vomiting with nausea G43.A0 [facility] [address] [facility] Apr, [place] [address] [place], Non-intractable cyclical [place] [address] vomiting with nausea G43.A0 and Grade II hemorrhoids K64.[address] [place], Non-intractable cyclical [place] [address] vomiting with nausea G43.A0 [facility] [address] [place], [place] [address] [facility] [address] [place], [place] [address] [place] [facility] [address] [place], [place], [place] 724.2 [place] [address] [place] [facility] [address] [place], [place] [address] [place] [facility] [address] [place], [place] [address] [place] [facility] [address] [place], [place], Dental [place] 522.[address] [place] [address] [place] [facility] [address] [place], [place], Dental [place] [address] [place] [address] [place] [facility] [address] [place], [place] [address] IMMUNIZATIONS No Known Immunizations SOCIAL HISTORY Never Assessed REASON FOR REFERRAL FUNCTIONAL STATUS PLAN OF CARE VITAL SIGNS MEDICATIONS Unknown Medications PROCEDURES No Known procedures RESULTS No Results REASON FOR VISIT declines psych intake Insurance Providers [facility] Health Member Patient Patient Patient Patient Patient Subscriber Subscriber Subscriber Group Insurance Plan Plan Plan Plan ID Relationship Address Phone Name Date of ID Name Date of No Type Insurance Insurance Insurance Coverage to Subscriber Address Phone Name Dates Case [phone] Case self [place] [id number] Management [place] 02 Management [facility] [address] [facility] [place] [phone] [place] self [place] [id number] Medicaid [place] 47 Medicaid [facility] [address] Medical n Evin [address] [phone] [place] self [place] [id number] Medicaid [id number] Medicaid [facility] [place] [address] [place] Medicaid [phone] Medicaid self [place] [id number] [address] [facility] [address] [facility] [id number] n MEDICAL (GENERAL) HISTORY Type Description Date Surgical History c section 11/2016
--- OUTSIDE RECORDS SUMMARY | 2019-03-10 11:11 | XMS REPORT ---
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 Active 343242 depression Problem Anxiety F41.9 Active 02629779 Problem Lower back pain 724.2 Active 753679526 Problem Non-intractable G43.A0 Active 13494383 cyclical vomiting with nausea Problem Depression, F32.9 Active 39568197 unspecified depression type ALLERGIES No Information ENCOUNTERS Encounter Location Date Diagnosis [address] Feb, [place] [address] Jan, [place] [address] vomiting with nausea G43.A0 [address] Dec, [place] [address] vomiting with nausea G43.A0 [address] Nov, [place] [address] Nov, Anxiety F41.9 ; [place] [address] major depression F32.1 and Encounter for immunization Z23 [address] Nov, [place] [address] Oct, [place] [address] F32.1 ; Anxiety F41.9 and Non-intractable cyclical vomiting with nausea G43.A0 [facility] [address] [facility], [place] [address] [facility] [address] [facility] [address] Sep, 2018 [place] [address] [place] [place] [address] [place] [place], Papanicolaou smear for Health [place] [address] cervical cancer screening Z12.4 ; Non-intractable cyclical vomiting with nausea G43.A0 and Routine screening for STI (sexually transmitted infection) Z11.[address] [place] [place], Non-intractable cyclical [place] [address] vomiting with nausea G43.A0 [facility] [address] [place], [place] [address] [place] [place], Non-intractable cyclical Health [place] [address] vomiting with nausea G43.A0 and Depression, unspecified depression type F32.[address] [place] [place], Non-intractable cyclical [place] [address] vomiting with nausea G43.A[address] [place] [place], Non-intractable cyclical [place] [address] vomiting with nausea G43.A[address] [place] [place], Non-intractable cyclical Health [place] [address] vomiting with nausea G43.A0 [facility] [address] [place], [place], [place] [address] vomiting with nausea G43.A0 [facility] [address] [facility] Apr, [place] [address] [place] [place], Non-intractable cyclical [place] [address] vomiting with nausea G43.A0 and Grade II hemorrhoids K64.[address] [place] [place], Non-intractable cyclical [place] [address] vomiting with nausea G43.A0 [facility] [address] [place], [place] [address] [place] [facility] [address] [place], [place] [address] [place] [facility] [address] [place], [place], [place] 724.2 [place] [address] [place] [facility] [address] [facility] [place], [place] [address] [facility] [address] [facility] [place], [place] [address] [place] [facility] [address] [facility] [place], [place], Dental [place] 522.5 [place] [address] [place] [facility] [address] [facility] [place], [place], Dental abscess 522.5 [place] [address] [facility] [address] [facility] [place], [place] [address] IMMUNIZATIONS No Known Immunizations SOCIAL HISTORY Never Assessed REASON FOR REFERRAL FUNCTIONAL STATUS PLAN OF CARE VITAL SIGNS MEDICATIONS Medication Instructions Dosage Frequency Start End Duration Status Date Date Amitriptyline HCl Orally Once a 2 tablets 24h Apr, 30 days Active 10 mg day once a day 2018 Ondansetron 4 mg Orally bid prn 1-2 tablets May, 30 days Active on the 2018 tongue and allow to dissolve as needed PROCEDURES No Known procedures RESULTS No Results REASON FOR VISIT refill Insurance Providers [facility] Health Member Patient Patient Patient Patient Patient Subscriber Subscriber Subscriber Group Insurance Plan Plan Plan Plan ID Relationship Address Phone Name Date of ID Name Date of No Type Insurance Insurance Insurance Coverage to Subscriber Address Phone Name Dates Case [phone] Case self [place] [id number] Management [place] 02 Management [facility] [address] [facility] n [place]in [phone] [place] self [place] [id number] Medicaid [place] 47 Medicaid [facility] [address] Medical n Medicaid [id number] [phone] Medicaid self [place] [id number] [facility] [address] [facility] [address] n Evin [phone] [place] self [place] [id number] Medicaid [id number] Medicaid [facility] [place] [address] [employer] MEDICAL (GENERAL) HISTORY Type Description Date Surgical History c section 11/2016
[2019-03-10 12:01] LABS: ABS Lymphocytes 1.6 10^3/ul (1.0-4.8); ABS Monocytes 0.6 10^3/ul (0-0.8); ABS Neutrophils 5.3 10^3/ul (1.5-7.7); Eosinophil % 0.3 %; Hematocrit 38 % (35-47); Hemoglobin 12.8 g/dL (12.0-16.0); Lymphocyte % 20.5 %; Mean Corpuscular HGB Conc 34 g/dL (31-36); Mean Corpuscular Hemoglobin 30 pg (27-31); Mean Corpuscular Volume 90 fL (80-97); Mean Platelet Volume 8.3 fL (7.4-10.4); Nucleated Red Blood Cells % 0.1; Platelet Count 334 10^3/uL (150-450); Red Blood Count 4.22 10^6 /uL (3.70-4.87); Red Cell Distribution Width 15 % (10-15); White Blood Count 7.6 10^3/uL (3.5-10.8)
[2019-03-10 12:23] LABS: HCG Pregnancy < 0.60 mIU/mL
[2019-03-10 12:49] LABS: ALT 13 U/L (7-52); AST 14 U/L (13-39); Albumin 4.8 g/dL (3.2-5.2); Albumin/Globulin Ratio 1.8 (1-3); Alkaline Phosphatase 65 U/L (34-104); Anion Gap 10 mmol/L (2-11); BUN/Creatinine Ratio 15.6 (8-20); Blood Urea Nitrogen 12 mg/dL (6-24); CO2 Carbon Dioxide 34 mmol/L (22-32); Chloride 93 mmol/L (101-111); EGFR African American 103.8 (>60); EGFR Non-African American 85.8 (>60); Globulin 2.6 g/dL (2-4); Glucose 102 mg/dL (70-100); Potassium 3.6 mmol/L (3.5-5.0); Sodium 137 mmol/L (135-145); Total Protein 7.4 g/dL (6.4-8.9)
[2019-03-10 13:26] VITALS: BP 142/109
== END 2019-03-10 15:11 | disposition left against medical advice (07) ==
LOC: ED 10:55
DX: Z53.21 Procedure and treatment not carried out due to patient leaving prior to being seen by health care provider (principal); R10.9 Unspecified abdominal pain
CPT/HCPCS: 36415; 80053; 83690; 84702; 85025; 99282